=== PATIENT | female | born 1965 | race Caucasian/White ===

== ENCOUNTER 2017-04-04 15:40 | Emergency (ER) | payer SELFPAY ==
[~2017-04-04] VITALS: Ht 162.6 cm; Wt 83.2 kg
[~2017-04-04 15:40] MED LIST: ABILIFY 15MG TA15 MG PO; ALDACTONE 25MG25 M1 PO; ALDACTONE 25MG25 MG PO; BENICAR 20MG TA20 MG PO; CELEBREX 200MG200 MG PO; CEPHALEXIN500 M1 PO; CIPRO 500MG TA500 MG PO; DESYREL 100MG100 MG PO; DIAZEPAM PO; DITROPAN 5MG TAB5 MG PO; DITROPAN5 MG PO; EFFEXOR XR 150150 MG PO; EFFEXOR XR75 MG/CAP PO; ELMIRON100 MG PO; FLAGYL500 MG PO; HYDROCODONE/APAP; K-DUR20 MEQ PO; KLOR-CON M2020 MEQ PO; LORTAB 5/500 501 TAB PO; LORTAB 7.5/5001 TAB PO; MOTRIN800 MG PO; NAPROSYN500 MG PO; NORCO 325 MG-51 TAB PO; NORCO 325 MG-7.1 TAB PO; NORVASC 5MG5 MG/TAB PO; OXYBUTYNIN5 MG PO; PHENERGAN 25 TA25 MG PO; PHENERGAN25 MG RC; POTASSIUM CL 220 MEQ PO; TRAZADONE HYDR100 MG PO; VALIUM 5MG T5 MG/TAB PO; VITAMIN D2400 IU PO; WELLBUTRIN 75MG75 MG
[2017-04-04 15:54] VITALS: TEMP 98.4
[2017-04-04] MEDS ORDERED: PREDNISONE20 MG PO (17:26)
[2017-04-04 17:49] VITALS: BP 138/95; PULSE 79
== END 2017-04-04 17:50 | disposition home or self-care (01) ==
LOC: COL.ER 15:40
DX: R21 Rash and other nonspecific skin eruption (principal); L29.9 Pruritus, unspecified; I10 Essential (primary) hypertension; F17.210 Nicotine dependence, cigarettes, uncomplicated; T46.5X6A Underdosing of other antihypertensive drugs, initial encounter; Z91.120 Patient's intentional underdosing of medication regimen due to financial hardship; F32.9 Major depressive disorder, single episode, unspecified; F41.9 Anxiety disorder, unspecified
CPT/HCPCS: J7512

== ENCOUNTER 2018-03-17 13:18 | Emergency (ER) | payer SELFPAY ==
[~2018-03-17] VITALS: Ht 162.6 cm; Wt 81.8 kg
[~2018-03-17 13:18] MED LIST changes: +ANTI-DIARRHEAL2 MG PO; +BENICAR40 MG PO; +EFFEXOR-XR150 MG PO; +LOTRONEX; +PREDNISONE20 MG PO
[2018-03-17 13:26] VITALS: BP 142/87; PULSE 116; TEMP 98.2
[2018-03-17] MEDS ORDERED: VASOTEC 10M10 MG/TAB PO (14:11)
[2018-03-17] MEDS ORDERED: ATARAX 25MG25 MG/TAB PO (15:12)
[2018-03-17] MEDS ORDERED: PREDNISONE20 MG PO (15:12)
== END 2018-03-17 15:25 | disposition home or self-care (01) ==
LOC: COL.ER 13:18
DX: L50.9 Urticaria, unspecified (principal); F41.9 Anxiety disorder, unspecified; F32.9 Major depressive disorder, single episode, unspecified; F17.210 Nicotine dependence, cigarettes, uncomplicated; Z98.890 Other specified postprocedural states
CPT/HCPCS: J7512

== ENCOUNTER 2018-12-02 19:20 | Emergency (ER) | payer SELFPAY ==
[~2018-12-02] VITALS: Ht 162.6 cm; Wt 90.9 kg
[~2018-12-02 19:20] MED LIST changes: +ATARAX 25MG25 MG/TAB PO; +VASOTEC 10M10 MG/TAB PO
[2018-12-02 19:32] VITALS: BP 167/87; TEMP 98.7
[2018-12-02] MEDS ORDERED: PREDNISONE20 MG PO (20:07)
[2018-12-02] MEDS ORDERED: CEPHALEXIN500 M1 PO (20:07)
[2018-12-02 20:20] VITALS: PULSE 87
[2018-12-02] MEDS ORDERED: COZAAR 50MG50 MG/TAB PO (20:23)
== END 2018-12-02 20:30 | disposition home or self-care (01) ==
LOC: COL.ER 19:20
DX: T49.4X5A Adverse effect of keratolytics, keratoplastics, and other hair treatment drugs and preparations, initial encounter (principal); I10 Essential (primary) hypertension; F17.210 Nicotine dependence, cigarettes, uncomplicated; F32.9 Major depressive disorder, single episode, unspecified
CPT/HCPCS: J7512

== ENCOUNTER 2019-03-16 22:41 | Emergency (ER) | payer SELFPAY ==
[~2019-03-16] VITALS: Ht 162.6 cm; Wt 90.9 kg
[~2019-03-16 22:41] MED LIST changes: +COZAAR 50MG50 MG/TAB PO
[2019-03-16 22:58] VITALS: TEMP 97.2
[2019-03-17 00:37] VITALS: BP 146/99; PULSE 98
== END 2019-03-17 00:37 | disposition short-term general hospital (02) ==
LOC: COL.ER 22:41
DX: S68.115A Complete traumatic metacarpophalangeal amputation of left ring finger, initial encounter (principal); I10 Essential (primary) hypertension; Z23 Encounter for immunization; W54.0XXA Bitten by dog, initial encounter; Y92.009 Unspecified place in unspecified non-institutional (private) residence as the place of occurrence of the external cause
CPT/HCPCS: 90375; J0690; J3010